=== PATIENT | male | born 2000 | race Caucasian/White ===

== ENCOUNTER → 2021-01-08 06:52 | Outpatient (CLI) | payer OTHER, SELFPAY ==
[2021-01-08 17:21] LABS: SARS-CoV-2 RNA PCR Positive
== END ==
PROVIDERS: PCP Pediatrics; Visit Provider Pediatrics
DX: U07.1 COVID-19 (principal)
CPT/HCPCS: C9803; U0003; U0005

== ENCOUNTER 2021-11-04 07:44 | Outpatient (CLI) | payer OTHER, SELFPAY ==
--- NOTE | ~2021-11-04 | US_ITS ---
EXAMINATION: US abdomen limited DATE: 11/04/2021 09:08 INDICATION: Other specified abnormal findings of blood chemistry. TECHNIQUE: Multiple grayscale and Doppler ultrasound images of the abdomen were obtained. COMPARISON: None FINDINGS: The visualized portions of the head, body, and tail of the pancreas are normal. There is di ffuse hepatic steatosis. No liver surface nodularity. There is normal flow in main portal vein. The g allbladder is normal in size and filled with gallstones. No gallbladder wall thickening or sonographi c Medina sign. The common duct is normal and measures 5 mm. IMPRESSION: 1. Cholelithiasis. 2. Diffuse hepatic steatosis. Reviewed, dictated and finalized at location A. [employer]
== END 2021-11-04 07:45 | disposition home or self-care (01) ==
PROVIDERS: PCP Family Medicine; Visit Provider Family Medicine
DX: R79.89 Other specified abnormal findings of blood chemistry (principal); K80.20 Calculus of gallbladder without cholecystitis without obstruction; K76.0 Fatty (change of) liver, not elsewhere classified
CPT/HCPCS: 76705